=== PATIENT | male | born 1965 | race Caucasian/White ===

== ENCOUNTER 2021-08-30 15:15 | Emergency (ER) | payer MEDICAID ==
[~2021-08-30] VITALS: Ht 188 cm; Wt 77.1 kg
--- NOTE | 2021-08-30 15:15 | NUR ---
JUVENTINO MCCOLLUM VIA GURNEY TO BED 09.
[2021-08-30 15:17] VITALS: BP 118/91
[2021-08-30] MEDS ORDERED: ASPIRIN 81 MG TAB.CHEW PO ONE (15:20)
[2021-08-30] MEDS ORDERED: NITROGLYCERIN 0.4 MG TAB SL ONE (15:30)
[2021-08-30] MEDS ORDERED: NACL 0.9% 1,000 ML IV ONE (15:40)
[2021-08-30 15:45] LABS: BASOPHILS % (AUTO) 0.2 % (0.0-2.0); EOSINOPHILS # (AUTO) 0.1 K/uL (0-0.4); EOSINOPHILS % (AUTO) 1.8 % (0.0-4.0); HEMATOCRIT 42.5 % (36-52); HEMOGLOBIN 14.3 g/dL (12.0-18.0); LYMPHOCYTES # (AUTO) 1.7 K/uL (2.0-11.5); LYMPHOCYTES % (AUTO) 34.4 % (20.5-51.1); MEAN CORPUSCULAR HEMOGLOBIN 32 pg (27-31); MEAN CORPUSCULAR HGB CONC 34 g/dL (33-37); MEAN CORPUSCULAR VOLUME 94.2 fL (80-94); MONOCYTES # (AUTO) 0.5 K/uL (0.8-1.0); MONOCYTES % (AUTO) 9.8 % (1.7-9.3); NEUTROPHILS # (AUTO) 2.7 K/uL (1.8-7.7); NEUTROPHILS % (AUTO) 53.8 % (42.2-75.2); PLATELET COUNT (AUTO) 246 K/uL (140-450); RED BLOOD CELL COUNT(AUTO) 4.52 MIL/uL (4.20-6.10); RED CELL DISTRIBUTION WIDTH 17.9 % (11.6-13.7); WHITE BLOOD COUNT (AUTO) 4.9 K/uL (4.8-10.8)
[2021-08-30 15:59] LABS: ALBUMIN 3.5 g/dL (3.4-5.0); ANION GAP 13.7 (8-16); CREATININE 0.7 mg/dL (0.6-1.3); POTASSIUM 3.7 mmol/L (3.5-5.1); TOTAL BILIRUBIN 0.4 mg/dL (0.0-1.0)
--- NOTE | 2021-08-30 16:05 | NUR ---
55/M BIBA WITH C/O CP X45 MINUTES PRIOR TO ARRIVAL TO ED. PER PATIENT HE STATES HE WAS DRIVING AND BEGAN FEELING A SUDDEN ONSET OF "SQUEEZING LIKE" PAIN. PATIENT REPORTS HE HAD HIS DAUGHTER IN THE CAR AND HE PULLED OVER IN WHICH SHE CALLED 911. PATIENT REPORTS HX OF TX, PATIENT ADMITS TO SMOKING CIGARETTES DAILY AND DRINKING ALCOHOL TODAY. PATIENT DENIES SOB, COUGH, FEVERS, DIZZINESS OR N/V/D.
--- NOTE | 2021-08-30 16:24 | NUR ---
CONSTANCE COLLECTED AND HANDED TO CONSTRUCTION REP ANUP
--- NOTE | 2021-08-30 18:00 | NUR ---
PT RESTING IN BED ON BEDSIDE CAGE CLERK. STATES PAIN HAS RESOLVED AT THIS TIME, WILL CONTINUE TO MONITOR.
--- NOTE | 2021-08-30 19:30 | NUR ---
Pt report given to LAURA LYONS. Transfer of care at this time.
--- NOTE | 2021-08-30 19:45 | NUR ---
RESTING IN BED WITH EYES CLOSED, RESPIRATIONS REGULAR AND UNLABORED. AWAKENED WITH EASE. DENIES PAIN OR DISCOMFORT.
--- NOTE | 2021-08-30 20:00 | NUR ---
AWAKE, TRYING TO GET OUT OF BED, RIPPED MONITOR LEADS OFF IS AGITATED. ASSISTED BACK TO BED, MADE COMFORTABLE, WATER GIVEN
--- NOTE | 2021-08-30 20:55 | NUR ---
REPORT NCALLED TO BILLIE AT [facility].
--- NOTE | 2021-08-30 21:13 | NUR ---
[facility] AT BEDSIDE
[2021-08-30 21:24] VITALS: BP 134/68
--- NOTE | 2021-08-30 21:24 | NUR ---
PT TAK[place] [facility] [place] [facility] [place] [facility] [address]
--- NOTE | 2021-08-30 21:24 | NUR ---
TRANSPORTED VIA [facility] TO [facility]. CHART COPIED AND SENT
== END 2021-08-30 21:24 | disposition short-term general hospital (02) ==
LOC: MED 15:15
DX: R55 Syncope and collapse (principal); Z20.822 Contact with and (suspected) exposure to COVID-19; F10.129 Alcohol abuse with intoxication, unspecified; R07.89 Other chest pain; Z88.5 Allergy status to narcotic agent
CPT/HCPCS: 36415; 71045; 80053; 83880; 84484; 85025; 85379; 87426; 96360; 99285; G0482; J7030; Q0092

== ENCOUNTER 2021-09-08 16:58 | Emergency (ER) | payer MEDICAID ==
[~2021-09-08] VITALS: Ht 188 cm; Wt 77.1 kg
[2021-09-08 16:59] VITALS: BP 141/89
--- NOTE | 2021-09-08 17:39 | NUR ---
Patient discharged with v/s stable. Written and verbal after care instructions given and explained. Patient alert, oriented and verbalized understanding of instructions. Police with in custody. All questions addressed prior to discharge. ID band removed. Patient advised to follow up with PMD. NO Rx given. Patient educated on indication of medication including possible reaction and side effects. Opportunity to ask questions provided and answered.
== END 2021-09-08 17:39 ==
LOC: MED 16:58
DX: R07.89 Other chest pain (principal); I25.2 Old myocardial infarction; Z86.73 Personal history of transient ischemic attack (TIA), and cerebral infarction without residual deficits; Z88.5 Allergy status to narcotic agent; V89.2XXA Person injured in unspecified motor-vehicle accident, traffic, initial encounter; Y93.89 Activity, other specified; Y92.410 Unspecified street and highway as the place of occurrence of the external cause; Y99.8 Other external cause status
CPT/HCPCS: 93005; 99283